=== PATIENT | male | born 1955 | race Caucasian/White ===

== ENCOUNTER 2016-12-14 22:06 | Observation (INO) | payer BC ==
[~2016-12-14] VITALS: Ht 180.3 cm; Wt 103.8 kg
--- NOTE | ~2016-12-14 | CON ---
PATIENT'S NAME: RUPERTO LLANES [facility] AGE: 61 Y [address] ROOM: [id number] [place], [place] [address] LOCATION: GPCU ADMIT DATE: 12/15/2016 Consultation DISCHARGE DATE: FAMILY PHYSICIAN: JEWELS CRAIG MD ATTENDING PHYSICIAN: JEWELS CRAIG REFERRING PHYSICIAN: Adrienne Davis MD HISTORY OF PRESENT ILLNESS: I saw this 61-year-old man in the hospital today. He came in following a syncopal episode he sustained at which time he landed on his head and was consequently admitted to the hospital. In the hospital today, he really did not have any complaints except for minimal bifrontal headaches, but this itself was not severe. Denies any nausea or vomiting. No blurring of his vision. No diplopia. No weakness or numbness in the upper or lower extremities. He said he had a similar syncopal episode about 3 months ago. At that time, he really did not fall. He just felt dizzy and was able to sit down prior to falling and then was able to carry on. It was later found that he has a second-degree heart block on workup. However, a CT scan of the brain that was done showed that he had a small subdural along the falx anteriorly on the left side and a small subdural collection of fluid, very small, in the anterior aspect of the left frontal lobe or the questionable area of contusion, which I really did not see on the scan. PAST MEDICAL HISTORY: He has a history of gout. ALLERGIES: NO KNOWN ALLERGIES TO MEDICATION. MEDICATIONS: He is only on allopurinol. REVIEW OF SYSTEMS: He denies any significant headache. No diplopia. No nausea, no vomiting. No neck pain. No chest pain. No abdominal pain. Denies any chest pain. Does not have any difficulty breathing. No abdominal pain. No weakness in the upper or lower extremities. No numbness in the upper or lower extremities. FAMILY HISTORY: He has strong family history of cardiac disease. PHYSICAL EXAMINATION: GENERAL: On examination in the hospital, he is a 61-year-old male who is 5 feet 11 inches tall, 103.8 kg in weight. Blood pressure is 120/72, the pulse was 77, respirations are 16, temperature is 97.8. [place] coma score was 15. HEENT: Did not appear to be in any acute distress. He was awake, he was PATIENT'S NAME: RUPERTO LLANES [facility] AGE: 61 Y [address] ROOM: [id number] [place], [place] [address] LOCATION: GPCU ADMIT DATE: 12/15/2016 Consultation DISCHARGE DATE: FAMILY PHYSICIAN: JEWELS CRAIG MD ATTENDING PHYSICIAN: JEWELS CRAIG alert. NECK: There was no tenderness on palpating cervical spinous processes or trapezius muscle. There was no restriction of movement of the cervical spine. CHEST: Clear. HEART: Heart rate was regular. ABDOMEN: Soft. No area of tenderness. NEUROLOGICAL: Cranial nerve examination was normal. The motor examination was normal. The sensory examination was normal. The reflexes were normal. The toes were downgoing. IMPRESSION: 1. Mild head injury. 2. Very small parafalcine and left anterior temporal subdural hematoma without any mass effect. I feel that this gentleman is stable. PLAN: 1. Unless there is a deterioration of his neurological status, there will really be no need to repeat the scan. 2. I do not see any contraindication to his being discharged home tomorrow if he stays stable neurologically. ADDENDUM: He had a CT scan of the cervical spine which shows evidence of degenerative disk disease, narrowing of the disk spaces, and anterior osteophytes at C5-6 and C6-7 without any accompanying fractures. MD YASH GUZMÁN/everette /[id number] d: 12/15/162100 t: 12/20/16 1514, CONSULTATION REPORT
--- NOTE | ~2016-12-14 | ER ---
PATIENT'S NAME: [facility] AGE: 61 Y [address] ROOM: [place] [address] LOCATION: GPCU ADMIT DATE: 12/15/2016 ER/Outpatient Report DISCHARGE DATE: FAMILY PHYSICIAN: JEWELS CRAIG MD ATTENDING PHYSICIAN: JEWELS CRAIG TIME OF ARRIVAL: 2205 hours. TIME OF EXAM: 2205 hours. CHIEF COMPLAINT: Syncopal episode. HISTORY OF PRESENT ILLNESS: The patient arrived per [facility], they state that they got called because the patient passed out at home. When they initially arrived, the patient had short-term memory loss, he could not remember what he really had done today. Upon arrival to the ER, the patient is awake and able to answer questions appropriately. 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 He states he did not have any chest pain, does not have any at this time, he has not been ill in anyway, has not had a cough, cold, congestion, or runny nose, has not been febrile, states he is pretty healthy and rarely goes to the doctor. Blood sugar checked by the ambulance was 168. The patient states he ate lunch, has not had supper yet, but ate gummy candy most of the afternoon while he worked. His son reports that he has had some vision changes since his new glasses arrived 1 week ago. ALLERGIES: NO KNOWN ALLERGIES. MEDICATIONS: Allopurinol. PAST MEDICAL HISTORY: Gout. PAST SURGERIES: Negative. SOCIAL HISTORY: PATIENT'S NAME: [facility] AGE: 61 Y [address] ROOM: [place] [address] LOCATION: GPCU ADMIT DATE: 12/15/2016 ER/Outpatient Report DISCHARGE DATE: FAMILY PHYSICIAN: JEWELS CRAIG MD ATTENDING PHYSICIAN: JEWELS CRAIG Denies any use of tobacco, drugs, or alcohol. REVIEW OF SYSTEMS: All negative other than those mentioned in the HPI. PHYSICAL EXAMINATION: VITAL SIGNS: He weighed 103.7 kg. Blood pressure is 159/96, pulse is 74, respirations 16, and O2 sat is 96% on room air. GENERAL: He is awake, alert, and oriented x4. SKIN: [place], warm, and dry. RESPIRATIONS: Even and nonlabored. TMs are pearly diaz. Nasal is clear. Oropharynx is clear. NECK: Supple. No lymphadenopathy. LUNGS: Lung sounds are clear throughout. HEART: Regular rate and rhythm. ABDOMEN: Soft, nondistended. Bowel sounds are present. EXTREMITIES: He moves all extremities strongly and equally. No peripheral edema noted. Positive peripheral pulses. NEURO: Cranial nerves 2 through 12 are grossly intact. LABORATORY DATA: EKG was completed. It does show a right bundle-branch block. There are no previous EKGs to compare it with. It was reviewed with Dr. Dozier. Lab work, CBC is within normal limits, Chem panel is within normal limits, glucose was 90, magnesium was 2.2, CPK is 239, CK-MB is 3.1, and troponin is negative. CT of the head was completed, it is negative per radiology report. He does have an occipital soft tissue contusion. CT of the cervical spine was completed. No abnormality is seen per radiology report. The patient was monitored and continued to be sinus rhythm. EMERGENCY DEPARTMENT COURSE: Discussed with the patient and his that we will check 2-hour enzyme results and repeat the EKG. They verbalized understanding. Report was given to Dr. Dozier at the change of shift. CORNELIO PANDYA APRN FOR MD NII BARDALES/everette /[id number] d: 12/15/16328 t: 02/15/171915, OUTPATIENT REPORT
--- NOTE | ~2016-12-14 | DS ---
PATIENT'S NAME: RUPERTO LLANES [facility] AGE: 61 Y [address] ROOM: [address] [place], [place] [address] LOCATION: GPCU ADMIT DATE: 12/15/2016 Discharge Summary DISCHARGE DATE: 12/16/2016 FAMILY PHYSICIAN: Jewels Belcher MD ATTENDING PHYSICIAN: Jewels Belcher FINAL DIAGNOSES: 1. Syncope, etiology undetermined. 2. Concussion, closed head injury, without focal deficit. 3. Small subdural hematoma and intracranial hemorrhage (see CAT scan of head report). 4. Elevated blood pressure, without diagnosis of hypertension. 5. Gout, currently quiescent. HOSPITAL COURSE: This 61-year-old male was admitted to the hospital on the date shown. The patient was seen in the emergency room by Dr. Dozier after a syncopal episode. The patient had passed out at home and had hit his head. The patient presented to the emergency room via ambulance and was evaluated by Dr. Dozier. His EKG at that time showed right bundle-branch block. No other acute changes. Lab work showed CBC and chemistry panel normal. Glucose was 90. Magnesium 2.5.. CT of the head was negative on original report. In the ER, he was noted to have a contusion in the occipital area. CT of the spine was completed, showing no sign of acute fracture or dislocation, but mild degenerative change noted. He was admitted to the hospital for observation. I came to see the patient the morning of admission. Because he had some bradycardia here in the 40s with second-degree heart block, I had Dr. Prem Ponce, the informatica mdm developer, look at his EKG, and it was felt that this was stable. No need for intervention or pacemaker. Second, I discussed the case with Dr. Adrienne Davis, neurosurgeon, and Dr. Davis was gracious enough to see the patient, review his CAT scan of his head and neck, and gave us recommendations for observation. On the morning of dismissal, 12/16/2016, the patient is medically stable. He has had no chest pain. No syncope. Has a mild, what he thinks is a caffeine- related headache because he has not had a cup of coffee yet. He has developed no new focal neurologic abnormality. His blood pressure is 155/80. We will follow that as an outpatient. He is dismissed to home to the care of his . I have asked him to see me back in the office in one week. He goes out on the med list shown basically PATIENT'S NAME: RUPERTO LLANES [facility] AGE: 61 Y [address] ROOM: [place] [address] LOCATION: GPCU ADMIT DATE: 12/15/2016 Discharge Summary DISCHARGE DATE: 12/16/2016 FAMILY PHYSICIAN: Jewels Belcher MD ATTENDING PHYSICIAN: Jewels Belcher including his prior gout medicine allopurinol, and he can take Tylenol and Advil for his headache. He will see me in one week in the office, and we will recheck his blood pressure and get his immunizations status up-to-date as he needs a shingles shot, he says. If he has increasing headache, chest pain, or shortness of breath, he should be seen back earlier. JEWELS BELCHER MD [employer] ROUSTABOUT/modl /[id number] d: 12/16/16 1353 t: 12/17/16 0733, DISCHARGE SUMMARY
--- NOTE | ~2016-12-14 | ER ---
PATIENT'S NAME: RUPERTO LLANES [facility] AGE: 61 Y [address] ROOM: [address] [place], [place] [address] LOCATION: GPCU ADMIT DATE: 12/15/2016 ER/Outpatient Report DISCHARGE DATE: FAMILY PHYSICIAN: JEWELS BELCHER MD ATTENDING PHYSICIAN: JEWELS BELCHER This patient was signed out to me by Emerita Brush. 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 Did go to CT scan, it was negative for any bleeding when he was pending the second set of enzymes and reassessment. When I reassessed him, the patient was increasingly confused. He was confused initially at the scene, but totally clear and alert, oriented x4, remembered what he was doing when he 1st arrived, but now his and his son states that he is getting more and more confused again. He thinks we were in [place] and he thinks it is 1978. He cannot think of his son's name or his 's name and he is kind of unclear about what he was doing earlier today. He also states that he seems quite restless and is moving very fidgety with the pulse ox etc. They stated that all of this happened after he hit his head on the ground after syncopizing. He is 61 years old. I think he would benefit from an observational stay. I think it is mostly a concussion. We will see if he improves overnight and then he should be on the monitor for his syncopal episode. So, we will admit this patient for observation, for syncope, and concussion. This was discussed with Dr. Belcher. The patient admitted in stable condition. IMPRESSION: Syncope, concussion. MD BLAKE BARDALES/everette /[id number] d: 12/15/16 0543 t: 12/15/161933, OUTPATIENT REPORT
[2016-12-14 22:28] LABS: BASOPHIL % 0.3 %; EOSINOPHIL # 0.2 K/uL (0.0-0.5); EOSINOPHIL % 3.4 %; HEMATOCRIT 44.9 % (37.0-53.0); HEMOGLOBIN 16.2 g/dL (11.0-16.0); IMMATURE GRANULOCYTE # 0.1 K/uL (0.0-0.3); IMMATURE GRANULOCYTE % 0.7 %; LYMPHOCYTE # 1.9 K/uL (0.8-4.0); LYMPHOCYTE % 28.4 %; MCH 30.9 pg (27.0-34.0); MCHC 36.1 gm/dL (32.0-36.5); MCV 85.5 fl (83.0-98.0); MONOCYTE # 0.6 K/uL (0.0-1.0); MONOCYTE % 9.2 %; MPV 11.2 fl (9.4-12.4); NRBC % 0 /100WBC (0-0.00); PLATELET COUNT 150 K/uL (150-450); RBC 5.25 M/uL (3.50-5.50); RDW-CV 12.4 % (11.9-14.6); WBC 6.8 K/uL (4.0-11.0)
[2016-12-14 22:37] LABS: INR - (THERAPEUTIC) 1.08 (0.92-1.07); PROTIME 11.4 SECONDS (9.8-11.4); PTT 27 SECONDS (25-32)
[2016-12-14 22:47] LABS: ALBUMIN 4.2 gm/dL (3.5-5.0); ALK PHOS 86 IU/L (33-138); ALT 38 IU/L (12-78); ANION GAP 11.9 (10.0-19.0); AST 25 IU/L (10-40); BLOOD UREA NITROGEN 19 mg/dL (6-24); CALCIUM 8.7 mg/dL (8.5-10.5); CHLORIDE 112 mMol/L (96-110); CO2 23 mMol/L (22-32); CPK 239 IU/L (35-332); CREATININE 1.1 mg/dL (0.6-1.3); ESTIMATED GFR (MDRD EQUATION) > 60; MAGNESIUM 2.2 mg/dL (1.8-2.6); POTASSIUM 3.9 mMol/L (3.7-5.1); SODIUM 143 mMol/L (135-145); TOTAL BILIRUBIN 1.2 mg/dL (0.0-1.5); TOTAL PROTEIN 7.4 g/dL (6.0-8.4)
[2016-12-15 00:37] LABS: CPK 367 IU/L (35-332)
[2016-12-15] MEDS ORDERED: ZYLOPRIM300 MG PO (01:37)
--- NOTE | 2016-12-15 02:19 | NUR ---
PATIENT WAS ADMITTED THROUGH THE ER AFTER BEING ASSESSED FOR A POTENTIAL SYNCOPAL EPISODE. PATIENT WAS REPORTED TO BE IN THE TRACTOR ALL DAY AND HAD RETURNED HOME. HE HAD STARTED TO FEEL DIZZY WHEN HE WOKE UP ON THE FLOOR AND APPARENTLY HITTING THE BACK OF HIS HEAD. THE SPOUSE CALLED 911 AND WAS TAKEN TO THE ER. HE WAS REPORTED TO BE VERY CONFUSED FOR THE AMBULANCE RIDE BUT SYMPTOMS HAD NEARLY RESOLVED BY THE TIME HE ARRIVED TO THE ER. DURING HIS ER VISIT PATIENT BECAME INCREASINGLY CONFUSED. CT WAS NEGATIVE. CARDIAC ENZYMES INITIATED. PATIENT REMAINS CONFUSED UPON ARRIVAL TO PCU AND IS UNABLE TO REPORT HIS OWN NAME. SPOUSE IS MAIN HISTORIAN. NO SIGNIFICANT HEALTH HISTORY OTHER THAN GOUT. DR. MELISSA CONTACTED FOR ORDERS.
--- NOTE | 2016-12-15 05:04 | NUR ---
Significant Event: PATIENT IS NOW ALERT AND ORIENTED. ANSWERS QUESTIONS APPROPRIATLEY. PRIOR TO THIS HE WAS UNABLE TO VERBALIZE HIS OWN NAME. BED ALARM IN PLACE. NS INFUSING AT 75ML/HR. CONTUSION TO BACK OF HEAD FROM FALL. Follow up:
--- NOTE | 2016-12-15 17:51 | NUR ---
DR CRAIG NOTIFIED THAT PATIENT HAD EPISODES OF 2ND DEGREE HEART BLOCK FOR SEVERAL MINUTES, THEN CONVERT BACK TO SINUS RHYTHM IN 70'S. CARDIOLOGY CONSULTED AND TELE STRIPS FAXED TO DR SCHMIDT. DR SCHMIDT NOTIFIED RN THAT PATIENT WOULD NOT NEED PACEMAKER WITH THAT RHYTHM. DR DELGADO CONSULTED AND ASSESSED PATIENT. PATIENT WAS A/OX3, NO EPISODES OF CONFUSION THIS SHIFT. PATIENT INSTRUCTED TO CALL NURSE IF DIZZY OR LIGHTHEADED, OR ANY OTHER SYMPTOMS. AT BEDSIDE WHEN DOCTORS ROUNDED.
--- NOTE | 2016-12-16 03:49 | NUR ---
Patient A/Ox3. VSS on RA. Standby assist to bathroom. Lungs clear. Bowel sounds present. IV Rt hand. Had a slight frontal headache all night, tylenol given x2 with little relief. Patient states he has had it since his fall. Patient did become nauseated and zofran was given x1 with relief. Patient also stated that he drink cokes 3-4 cans a day and think its a caffine withdrawal headache but he refused any pepsi. Remaining neuro assessment (-). Continue to monitor Neuro assessment, headache, and nausea.
--- NOTE | 2016-12-16 03:57 | NUR ---
Patient A/Ox3. VSS on RA. Up standby assist. Lungs clear. Bowel sounds present. IV to Rt hand. Did complain of frontal headache, tylenol given x2 with little relief. Patient states that he has had this headache since his fall it hasn't gotten worst or better just a steady headache. He thinks its a caffine withdrawal headache because he drinks 3-4 cans of coke a day. Will have bring up some coke today, refused to drink pepsi. Patient did get nauseated zofran x1 with relief noted. Remaining neuro assessment (-). Continue to monitor neuro assessment, headache, and nausea.
--- NOTE | 2016-12-16 11:33 | NUR ---
d- ord pt dc r-nurse told dr of pt hr 40s dr knew, orthos ok, pt still has some headache but says coke is helping, iv dcd intact, pt up to br ok, dc instructions told appt to be made tomorrow for 1 wk, r-pt has no questions and will check his bp/pulse at home and if dizzy, p-ta took pt out to car per wc
== END 2016-12-16 10:40 | disposition disaster alternative care site (69) ==
LOC: GMED 22:06 → GPCU 12-15 00:31
PROVIDERS: Emergency Medicine; ADMIT Family Medicine
DX: S06.5X0A Traumatic subdural hemorrhage without loss of consciousness, initial encounter (principal); R03.0 Elevated blood-pressure reading, without diagnosis of hypertension; M10.9 Gout, unspecified; Z79.899 Other long term (current) drug therapy; W19.XXXA Unspecified fall, initial encounter
CPT/HCPCS: G0378; J2405; J7030

== ENCOUNTER 2016-12-17 05:07 | Inpatient (IN) | payer BC ==
[~2016-12-17] VITALS: Ht 182.9 cm; Wt 101.6 kg
--- NOTE | ~2016-12-17 | HP ---
[facility] 61 Y [address] ROOM: [place] [address] LOCATION: GICU ADMIT DATE: 12/17/2016 History & Physical DISCHARGE DATE: FAMILY PHYSICIAN: JEWELS CRAIG MD ATTENDING PHYSICIAN: RIZWAN PARK V DATE OF SERVICE: CHIEF COMPLAINT: Fall. HISTORY OF PRESENT ILLNESS: The patient is a 61-year-old male, who fell at home, passed out, and hit his head. He ended up by ambulance coming to the emergency room and he was seen there by Dr. Dozier, ER physician. His evaluation in the ER showed normal telemetry strips, CBC and Chem panel were normal, magnesium was normal, CT of the head was normal on original read and CT of the neck was normal. The patient has been in the hospital with diagnosis of syncope and concussion for observation. When I see him, he is resting quietly in bed, does not complain of a headache, and has no vomiting, no visual changes, no weakness in his arms or legs. No history of previous syncope or seizures or arrhythmia. He just felt like all of a sudden, he blacked out in the kitchen and fell down. At this point, I have asked Dr. Prem Ponce, developer prover mechanical to review the patient's rhythm strip because he just had a spell of second-degree heart block with rates in the 40s and I have called Dr. Adrienne Davis, neurosurgeon on-call, and given him the patient's history and CT findings, which on over- read by Dr. Prem Gilmore here this morning show a possible small subdural hematoma and intracranial hemorrhage. Please see Dr. Gilmore's report. MEDICATIONS: Reviewed. Note, he is on allopurinol for gout. ALLERGIES: NOTED, NONE. PREVIOUS OPERATIONS: See nurse's notes. SOCIAL HISTORY: He does not smoke. FAMILY HISTORY: Noncontributory. [facility] AGE: 61 Y [address] ROOM: [place] [address] LOCATION: GICU ADMIT DATE: 12/17/2016 History & Physical DISCHARGE DATE: FAMILY PHYSICIAN: JEWELS CRAIG MD ATTENDING PHYSICIAN: RIZWAN PARK V REVIEW OF SYSTEMS: HEENT: As above. ENDOCRINE: He is not diabetic. There is no thyroid disease. LUNGS: No history of asthma. HEART: No history of hypertension or arrhythmia. GI: No nausea or vomiting. : No dysuria or frequency. EXTREMITIES: No significant arthritis. NEUROLOGIC: No prior history of seizure or syncope. MENTAL STATUS: No recent depression or anxiety. PHYSICAL EXAMINATION: GENERAL: Alert, dark-haired male who is bearded. He is oriented to person, place, time, and competent. He is in no apparent distress, lying in bed in PCU. HEENT: Shows pupils react to light. TMs are not visualized. Posterior pharynx is clear. NECK: Unremarkable. No carotid bruit. Thyroid not enlarged. LUNGS: Clear without wheezes or rub. HEART: No murmur, gallop, or rub. ABDOMEN: Soft without point tenderness. PELVIC: Not done. RECTAL: Not done. NEUROLOGIC: Shows cranial nerves intact. No lateralizing signs. Mental status: Normal for age. No sign of depression or anxiety. IMPRESSION: 1. Fall. 2. Syncope. 3. Second-degree heart block. 4. Intracranial hemorrhage with small subdural. PLAN: As per HPI. JEWELS CRAIG MD PREPRESS STRIPPER/modl /[id number] D: [id number] T: [id number] HISTORY & PHYSICAL
--- NOTE | ~2016-12-17 | CON ---
PATIENT'S NAME: RUPERTO LLANES [facility] AGE: 61 Y [address] ROOM: [address] [place] [id number] LOCATION: GICU ADMIT DATE: 12/17/2016 Consultation DISCHARGE DATE: FAMILY PHYSICIAN: JEWELS CRAIG MD ATTENDING PHYSICIAN: RIZWAN PARK V DATE OF CONSULTATION: 12/17/2016 REFERRING PHYSICIAN: Chucky Alcantar MD HISTORY OF PRESENT ILLNESS: Mr. Llanes is intubated on propofol presently so I could not get any history. The patient's and daughter was present. 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 He was not particularly overheated or out in the heat during that day. He came in the later portion of the day, was feeling well, but apparently in front of his was standing and started to make a snorting sound and fell backward and hitting the back of his head. He did not have any seizure activity such as tonic-clonic activity. This appeared to be a syncopal event. Again, there was no warning of this and the patient did not have any lightheadedness that was reported at any point. The patient was taken to the emergency room for the syncopal event and he actually did well there. He had a CT of the head, which was initially read as normal, but eventually was updated to show that he had a small subdural bleed in the anterior falx as well as some amount of blood that was in the suprasellar cistern and furthermore a likely posttraumatic subarachnoid bleed, which was small in the area of the left frontal region. So, back in the emergency room, the patient was planning to be discharged; however, very suddenly, he had an alteration in his sensorium, this was associated with the patient acting very bizarre looking and fidgeting with his hands almost to the point of acting strangely as if he was having a frontal-lobe type seizure. Furthermore, he was a bit agitated and was confused. It is clear that this episode lasted for at least 25 minutes. We decided that the patient should be monitored in the hospital; and by the tube test technician, he saw his and was completely back to baseline. He had talked to her like nothing had happened and during the course of the day was completely normal. During the workup for this event of the syncope, he was seen by the neurosurgeon, Dr. Davis, who noted that he had a very small bleed and no intervention was necessary and certainly there was no aspect to suggest that he had a seizure as it was unclear. Essentially, he was normal neurologically and was sent home. The next day after discharge, the patient had a generalized seizure at home and continued to have a generalized seizure and had multiple seizures in the emergency room to the point where he needed to be intubated for airway support. He was started on fosphenytoin and then Dilantin. Seizures stopped essentially from the antiepileptic medications and propofol. He has been intubated and on AC ventilatory support during the course of the day due to PATIENT'S NAME: RUPERTO LLANES [facility] AGE: 61 Y [address] ROOM: [place] [address] LOCATION: [facility] ADMIT DATE: 12/17/2016 Consultation DISCHARGE DATE: FAMILY PHYSICIAN: JEWELS CRAIG MD ATTENDING PHYSICIAN: RIZWAN PARK V dramatic seizure. The laboratory results did not show much evidence for a generalized seizure, but it was clear his generalized seizure took place, Neurology was asked to come in to comment on the nature of his generalized seizure after what seemed to be a fairly benign head injury with a small amount of bleed. PAST MEDICAL HISTORY: Essentially, the patient is healthy. The only medication, he has is allopurinol for a history of gout. He has no prior surgical history. SOCIAL HISTORY: He does not smoke. He does not drink alcohol. He does not use any illicit drugs. He is . He has at least 1 daughter. He works as a che. CURRENT MEDICATIONS: Include Dilantin 100 mg IV 3 times a day. REVIEW OF SYSTEMS: The patient is intubated after a prolonged generalized seizure in the emergency room. He was started on antiseizure medications. He has no gross evidence of seizures through the Dilantin and through propofol. He has been intubated on AC ventilatory support during the course of the day. The plan is to extubate the patient likely tomorrow. The patient possibly had some event of lightheadedness about 2 weeks prior, but did not result in any passing out. He is otherwise healthy. He was noted to have a bradycardic arrhythmia, seen in the emergency room on the floor, but this resolved and the etiology for this was unclear. The patient was seen by Cardiology and he was cleared for any further workup such as a pacemaker. He has remained in sinus rhythm in the 60s throughout all his time here and he has not had any bradycardic arrhythmia. PHYSICAL EXAMINATION: GENERAL: The patient is sedated. HEENT: Pupils equal, reactive to light, and accommodation. Extraocular muscles, corneal reflex, and oculocephalic reflex cannot be done due to currently for propofol. NEURO: The assessment of his motor power could not be done presently and the rest of the neurologic exam will likely be recorded after the patient is off of sedation. PLAN: I discussed with the family about doing a CT angiogram on the very small likelihood that he may have had a small sentinel bleed from an aneurysm, which is of course a very small chance, and the location of the subdural bleed and subarachnoid bleed are likely traumatic in etiology, but nonetheless because PATIENT'S NAME: RUPERTO LLANES [facility] AGE: 61 Y [address] ROOM: [place] [address] LOCATION: [facility] ADMIT DATE: 12/17/2016 Consultation DISCHARGE DATE: FAMILY PHYSICIAN: JEWELS CRAIG MD ATTENDING PHYSICIAN: RIZWAN PARK V the patient had this very sudden onset of his syncopal event followed by a seizure, he want to be sure as possible that we are not dealing with a small- vessel bleed. I discussed the case with Radiology and they agreed that a CT angiogram would be the best test. This will be performed before the patient is attempted to be extubated likely tomorrow. The etiology for the patient having a seizure after passing out and presumably having a concussion, but doing better thereafter is more likely from blood that track into the subarachnoid space. Subarachnoid hemorrhages can be more seizurogenic especially if blood tract into the ventricles, which were not seen presently. The bleed is extremely small, but nonetheless could be seizurogenic. There is no known history of seizures and no known history that would suggest a withdrawal seizure from any toxic ingestion or from a medication or from alcohol, which he does not use. There did not seem to be a necessary reason for the patient to have a syncopal event that particular day and it is not clear at all if the bradycardic event of 40 or so beats per minute was associated with the small subarachnoid bleed, which is certainly a possibility. I do believe that the patient in general will do fine with an extubation as these parameters on the vent are requiring low FiO2. The need for long-term antiseizure medication will likely be made at some point over the next few weeks to months, but it may be that the patient would need to be on seizure medication at least for the short-duration. Continue to follow Mr. Llanes's neurologic status here. MD ENRIKE KAPOOR/modl /[id number] d: 12/18/16 0231 t: 01/02/17 1728, CONSULTATION REPORT
--- NOTE | ~2016-12-17 | HP ---
PATIENT'S NAME: PERRY LLANES [facility] AGE: 61 Y [address] ROOM: [place] [address] LOCATION: [facility] ADMIT DATE: 12/17/2016 History & Physical DISCHARGE DATE: FAMILY PHYSICIAN: JEWELS CRAIG MD ATTENDING PHYSICIAN: RIZWAN PARK V DATE OF SERVICE: CLINICAL UPDATE: I was called this morning at approximately 6:[address] Reynold Garcia, ER physician. He told me the patient, Perry Llanes, presented with status epilepticus. As you can see, Perry was dismissed by me yesterday from the hospital. He had been here a couple days after falling and hitting his head. At this point, the patient is intubated and will be admitted to intensive care unit. I do not have Intensive Care privileges. So, I have asked Dr. Garcia to consult the hospitalist and neurologist as indicated. I will follow socially until the patient is more stable out of intensive care and then be more involved in care as needed. FINAL IMPRESSION: Status epilepticus, probably related to recent head injury and fall. JEWELS CRAIG MD GYROSCOPIC INSTRUMENT TESTER/everette /[id number] D: [id number] T: [id number] HISTORY & PHYSICAL
--- NOTE | ~2016-12-17 | ECHO ---
Transthoracic Echocardiography Report (TTE) Demographics Patient Name RUPERTO LLANES Date of Study 12/19/2016 Patient Number [id number] Visit Number [id number] Date of 1955 Room Number G6326 Accession Number [id number] Gender Male Age 61 year(s) Referring [employer] Psychologist Tootie Do RVT, Physician RDCS Physician Interpreting Shar Arm Rest Builder Physician Iman RED Supervising Ordering Physician Shar RED/CHERYL Valerio MD Nurse Stress Weather Anchor Conclusions Summary Normal LV/RV size and systolic function. The estimated left ventricular ejection fraction is 60-65%. Mild concentric left ventricular hypertrophy. Diastolic assessment reveals Grade I diastolic dysfunction. The left atrium is mildly dilated. No significant valvular abnormalities. No evidence of pericardial effusion. Procedure Type of Study TTE procedure:2D Echocardiogram. Procedure Date Date: 12/19/2016 Start: 11:32 AM Study Location: Inpatient Portable Technical Quality: Adequate visualization Indications:Heart block. Appropriate Use Criteria: 8 Patient Status: Routine Rhythm: Sinus with bundle branch block HR: 49 bpm BP: 138/80 mmHg M-Mode/2D Measurements LV Diastolic Dimension: 4.37 cm LV Systolic Dimension: 2.3 cm LV Septum Diastolic: 1.42 cm LV PW Diastolic: 1.47 cm AO Root Dimension: 2.7 cm Cardiac Output: 4.08 l/min AV Cusp Separation: 1.9 cm RV Diastolic Dimension: 3.16 cm LA volume: 77 ml LVOT: 2.2 cm RV Base: 2.95 cm LVOT VTI: 21.9 cm RV Mid: 2.71 cm LV Stroke volume: 83.21 ml TAPSE: 2.82 cm TDI-S': 12 cm/s Doppler Measurements AV Peak Velocity: 1.54 m/s MV Peak E-Wave: 0.53 m/s AV Peak Gradient: 9.49 mmHg MV Peak A-Wave: 0.6 m/s AV Mean Gradient: 5 mmHg MV E/A Ratio: 0.89 LVOT Peak Velocity: 1.03 m/s MV P1/2t: 97 msec TR Gradient:5.95 mmHg PV Peak Velocity: 1.02 m/s Estimated RAP:5 mmHg PV Peak Gradient: 4.16 mmHg Estimated RVSP: 11 mmHg Estimated PASP: 10.95 mmHg E' Septal Velocity: 0.05 m/s A' Septal Velocity: 0.1 m/s E' Lateral Velocity: 0.08 m/s A' Lateral Velocity: 0.13 m/s Findings Left Ventricle Mild concentric left ventricular hypertrophy. Diastolic assessment reveals Grade I diastolic dysfunction. Right Ventricle Normal right ventricle structure and function. Left Atrium The left atrium is mildly dilated. There is no evidence of patent foramen ovale or atrial septal defect by color Doppler. Right Atrium Normal right atrial size. IVC measures 2.0 cm with inspiratory collapse. Mitral Valve Normal mitral valve structure and function. Aortic Valve Normal aortic valve structure and function. Tricuspid Valve Normal tricuspid valve structure and function. Pulmonic Valve Normal pulmonic valve structure and function. Pericardial Effusion No evidence of pericardial effusion. Miscellaneous Visualized portions of the aortic root and ascending aorta appear normal in size. Pleural Effusion No evidence of pleural effusion. Contractility Score LV regional wall motion:(0-Non visualized 1-Normal 2-Hypokinesis 3-Akinesis 4-Dyskinesis 5-Aneurysm) Signature dtt: IMAN GAITAN dtd: 12/19/16 1132 Physician Self Edit
--- NOTE | ~2016-12-17 | OR ---
PATIENT'S NAME: RUPERTO LLANES [facility] AGE: 61 Y [address] ROOM: [place] [address] LOCATION: GPCU ADMIT DATE: 12/17/2016 OR/Procedure Report DISCHARGE DATE: FAMILY PHYSICIAN: JEWELS CRAGI MD ATTENDING PHYSICIAN: RIZWAN PARK V SURGEON: Prem Ponce MD DATABASE SECURITY EXPERT: DATE OF PROCEDURE: 12/21/2016 PROCEDURE: Dual chamber pacemaker implantation INDICATIONS: Second-degree heart block. PROCEDURE/FINDINGS: Patient was brought to the operative suite in the fasting state and prepped and draped in the normal manner. 1% lidocaine was used for local skin infiltration in the left infraclavicular region. An 18 gauge Cook needle was advanced to the left subclavian vein through which an 0.025 wire was placed. Needle was removed. Proximal end of the wire was attached to the surgical gown with a hemostat. Next, a second access point was obtained also with the 18 gauge Cook needle. 0.025 wire was placed. Needle was removed. Proximal end of the wire was attached to the surgical gown with a hemostat. Attention was then turned towards creation of the pacemaker pocket where additional 1% lidocaine was given. Next, a #11 blade was used for primary skin incision. Following this, blunt dissection, as well as Bovie cautery was used for dissection to the pectoralis fascia. This was identified, entered into and dissected both cephalad as well as caudally. The previously placed 0.025 wires were brought through the skin into the pocket. The first wire had a 7F sheath placed onto it. Wire and dilator were removed. Using fluoroscopic guidance, the right ventricular lead was placed. This is a [employer] Centrify, model #7742, serial #[id number]. Thresholds were obtained showing a sensing R wave of 9 mV, threshold 0.6 at 0.5 milliseconds pulse width, impedance of 741 ohms. Next, the shoulder sleeve was anchored into the pectoralis muscle using two interrupted sutures of zero of silk. A 7F sheath was placed on the remaining wire. Wire and dilator were removed. Using fluoroscopic guidance, the right atrial lead was placed. This is a [place], model #7741, serial #[id number]. Thresholds were obtained showing a sensing P wave of 4.7 mV, threshold 0.7 V at 0.5 milliseconds pulse width, impedance of 612 ohms. Next, the shoulder sleeve was anchored into the pectoralis muscle using two interrupted sutures of zero of silk. Both these leads were then connected to the generator. This is a S[employer]is[employer] ESSENTIO, model #L111, serial #[id number]. The generator with the connected leads were placed into the pacemaker pocket. Overlying subcutaneous tissue was closed with 2-0 Vicryl in running fashion. Next, the subcuticular layer was closed with 4.0 Vicryl also in running fashion. Steri-Strips were applied as well as a pressure dressing. PATIENT'S NAME: RUPERTO LLANES [facility] AGE: 61 Y [address] ROOM: [place] [address] LOCATION: [facility] ADMIT DATE: 12/17/2016 OR/Procedure Report DISCHARGE DATE: FAMILY PHYSICIAN: JEWELS CRAIG MD ATTENDING PHYSICIAN: RIZWAN PARK V Patient had been placed in a shoulder immobilizer prior to the start of the study. There were no complications. CONCLUSION: 1. Dual chamber pacemaker implantation for second-degree heart block. 2. Patient will continue with shoulder immobilizer for the next one week. 3. Chest x-ray is pending at the time of dictation. 4. Patient will be educated on use of the home remote monitoring system. MD RIKKI GREENWOOD/zoe /[id number] CC: Printer CARDIOPULMINARY d: 12/21/16 1430 t: 12/26/16 1220, OPERATIVE SUMMARY
--- NOTE | ~2016-12-17 | DS ---
PATIENT'S NAME: RUPERTO LLANES [facility] AGE: 61 Y [address] ROOM: [address] [place], [place] [address] LOCATION: GPCU ADMIT DATE: 12/17/2016 Discharge Summary DISCHARGE DATE: 12/23/2016 FAMILY PHYSICIAN: Aguila Belcher MD ATTENDING PHYSICIAN: Andrews Alonso V DISCHARGE DIAGNOSES: 1. Cardiogenic syncope secondary to #2. 2. Secondary atrioventricular block. 3. Status post permanent pacemaker placement (23% dependent). 4. Traumatic subdural hematoma. 5. Seizures, likely secondary to trauma. 6. Rhabdomyolysis, nontraumatic, secondary to seizures. DISCHARGE MEDICATIONS: Home medications with addition of amlodipine 5 mg daily and phenytoin 100 mg QID. IMAGING: Normal CTA head. CT cervical spine showed degenerative changes at C5-C6 and C6-C7 with no evidence of displaced fracture or dislocation. Chest x-ray showed stable nonacute chest. Serial CT brain showed improving subdural hematoma. HOSPITAL COURSE: In brief, this is a 61-year-old male with history of gout. He was admitted after he sustained a syncopal episode with fall associated with head trauma. Initially, head CT showed a possible small subdural hematoma. His EKG was suggestive of a 2:1 AV block and right bundle branch block. The working diagnosis was that the patient had significant bradycardia leading to syncope that resulted in the fall with head trauma leading to the subdural hematoma. Cardiology was consulted, and he obtained a pacemaker placement. Neurosurgery did not recommend any surgical intervention of the subdural hematoma and repeat/serial CT scan of the brain showed improvement of the subdural hematoma. He remained on teletypesetter monitor, and he did well. He denies any chest pain, shortness of breath, dyspnea on exertion, and no palpitation. At some point an EEG was also done and results also pending at this point. At the time of discharge, he was ambulating fine. He was tolerating diet well. CONDITION ON DISCHARGE: Good. DISPOSITION: Home. ACTIVITY: Ad marie. DIET: Regular diet. FOLLOWUP INSTRUCTIONS: 1. Follow up with Dr. Belcher in two week. 2. Follow up with Dr. Iman Myles in 2 weeks. 3. Follow up on EEG results with Dr Chua in 2 weeks. I would like to thank Dr. Belcher for allowing us to participate in the care PATIENT'S NAME: RUPERTO LLANES [facility] AGE: 61 Y [address] ROOM: [place] [address] LOCATION: [facility] ADMIT DATE: 12/17/2016 Discharge Summary DISCHARGE DATE: 12/23/2016 FAMILY PHYSICIAN: Aguila Belcher MD ATTENDING PHYSICIAN: Andrews Alonso V of this pleasant gentleman. PHILLY FERNANDEZ MD BA/modl /[id number] d: 12/22/16 1405 t: 12/25/16 0921, DISCHARGE SUMMARY
--- NOTE | ~2016-12-17 | HP ---
PATIENT'S NAME: [facility] AGE: 61 Y [address] ROOM: [place] [address] LOCATION: GI ADMIT DATE: 12/17/2016 History & Physical DISCHARGE DATE: FAMILY PHYSICIAN: JEWELS CRAIG MD ATTENDING PHYSICIAN: RIZWAN PARK V DATE OF SERVICE: CHIEF COMPLAINT: Seizures. HISTORY OF PRESENT ILLNESS: Provided entirely by the family. This is a previously healthy 61-year-old male who was discharged home approximately 24 hours ago. At that point, he was admitted for evaluation of a syncopal episode as well as minor subdural/subarachnoid hemorrhage, which was treated conservatively. Per discussion with the family, even at the first event, the patient was observed to have yelled out and fallen down hitting his head. He was unresponsive for a protracted period of time until taken by the paramedics to the ER. In the ER, he was confused initially, but after he was admitted and evaluated, he became appropriate again. He was not discharged on any antiepileptics. He did have a small subdural and small subarachnoids, which were monitored by Neurosurgery and not surgically treated. Shortly after arriving home, the patient was at his baseline status. He eventually went to sleep while watching TV. About an hour or 2 after that, his heard him screaming and when she went out to check on him, he was seen convulsing. He convulsed several more times en route to the ER. He had another seizure in the ER and was subsequently intubated. At this point, he is intubated and sedated with propofol and expectantly does not have any significant neurological function. REVIEW OF SYSTEMS: Negative for fevers, chills, nausea, vomiting, or palpitations. PAST MEDICAL HISTORY: As reported by his is that of gout. SURGICAL HISTORY: Unremarkable. 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 FAMILY HISTORY: PATIENT'S NAME: [facility] AGE: 61 Y [address] ROOM: [place] [address] LOCATION: [facility] ADMIT DATE: 12/17/2016 History & Physical DISCHARGE DATE: FAMILY PHYSICIAN: JEWELS CRAIG MD ATTENDING PHYSICIAN: RIZWAN PARK V Significant for heart disease in his mother. CURRENT MEDICATIONS: "Gout medication." PHYSICAL EXAMINATION: VITAL SIGNS: At this point, the patient's vital signs are blood pressure 90's/50's, heart rate varies from 50s with evidence of second-degree block to 80s with sinus, this is after the patient received Cerebyx. Saturating 92% on 80% FiO2. 6 of PEEP, afebrile, and breathing few breaths over the ventilator. GENERAL: Appears as a well-developed, well-nourished, middle-aged male, intubated and sedated. HEENT: Pupils are 3 mm and reactive to light. Remainder of neurological exam cannot be conducted. LYMPHATIC: Shows no cervical lymphadenopathy. ENDOCRINE: Shows no thyromegaly. LUNGS: Coarse bilaterally. HEART: Shows regular rate and rhythm. Occasionally irregular, bradycardia. ABDOMEN: Soft, nontender, nondistended. : No costovertebral angle tenderness. VASCULAR: 2+ pedal pulses. MUSCULOSKELETAL: Shows no muscle or joint abnormalities. LABORATORY DATA: Studies performed in the ER are significant for CT of his head, which shows improvement in his subdural and resolution of subarachnoid hemorrhage sustained on his prior stay. Lab results are significant for ABG showing pH 7.21, pCO2 of 51, PO2 of 57, saturations in 90s, this is 100% FiO2. Other lab results are significant for potassium 3.6, CO2 of 9 with an anion gap of 26. Glucose is 263 and creatinine is 1.8. White count 23.1, hemoglobin 16.8, platelets 355. Initially, his telemetry strips appeared as 2:1 heart block, this is after he was loaded with Cerebyx though subsequently he is now back in sinus rhythm at 83 beats per minute with right bundle-branch block. Chest x- ray shows poor inspiratory efforts with the ET tube and questionable edema versus patchy infiltrates as interpreted by me. ASSESSMENT AND PLAN: This is a previously healthy 61-year-old male who will be admitted with: 1. Convulsive activity. The patient has received Cerebyx. We will start him on Dilantin. We will provide him with airway protection. We will request a Neurology evaluation today. 2. Respiratory failure due to convulsive activity. At this point, the patient's airway is protected. I am able to come down on his oxygen saturations. I suspect that an aspiration pneumonia is present and we will treat that empirically with Levaquin. We will continue the patient PATIENT'S NAME: RUPERTO LLANES [facility] AGE: 61 Y [address] ROOM: [address] [place], [place] [address] LOCATION: [facility] ADMIT DATE: 12/17/2016 History & Physical DISCHARGE DATE: FAMILY PHYSICIAN: JEWELS CRAIG MD ATTENDING PHYSICIAN: RIZWAN PARK V on a ventilator as above and sedate him for now. 3. Metabolic/respiratory acidosis: This seems to be improving based on his bicarb. The patient is in fact breathing over the ventilator and we will allow his acid-base status to self-correct on the current ventilator settings. 4. Acute hypoxic respiratory failure. This is presumed pneumonia as above and we will treat him accordingly. 5. Metabolic Encephalopathy: We will also check the patient's CPK and lactate and treat him appropriately with IV fluids and monitor his CPK as well as consider development of rhabdo. 6. Evidence of second-degree atrioventricular block. This is likely related to Cerebyx load. The rhythm has now normalized. We will monitor the patient on telemetry and consider a 2-dimensional echocardiogram, though he was evaluated by Cardiology, I believe, on prior hospitalization. This patient is critically ill. Critical care time dedicated to his encounter is 60 minutes. RIZWAN PARK MD AVK/modl /[id number] D: [id number] T: [id number] HISTORY & PHYSICAL
--- NOTE | ~2016-12-17 | ER ---
PATIENT'S NAME: RUPERTO LLANES [facility] AGE: 61 Y [address] ROOM: [address] [place] [id number] LOCATION: [facility] ADMIT DATE: 12/17/2016 ER/Outpatient Report DISCHARGE DATE: FAMILY PHYSICIAN: JEWELS CRAIG MD ATTENDING PHYSICIAN: RIZWAN PARK V Time of Arrival: At 6:40. Time of Evaluation: The patient was seen on arrival. CHIEF COMPLAINT: This is a 61-year-old male. He was previously in very good health. He is in with seizure. HISTORY OF PRESENT ILLNESS: The patient was seen the day before yesterday after syncopal episode that resulted in a fall, and he hit his head and had a resultant subdural subarachnoid hemorrhage that was fairly small. He was confused for about 8 hours in the hospital. He regained his normal level of alertness the following morning, was observed in the hospital, discharged yesterday afternoon. Still had a mild headache, but was fully alert, and his short and long-term memory were intact. He was behaving normally. His was awakened by seizure activity early this morning. She called the paramedics and he continued to seize en route to the hospital. He had 3 or 4 separate episodes of convulsive activity, and he had no periods of alertness between these episodes, he remained in status. Upon arrival to the hospital, he was obtunded. He had sonorous respirations. He had low-grade fever, tachycardiac and mildly hypertensive. Pupils were 2 mm, responsive to light. He had no focal neurologic findings. He had increased muscle tone throughout and hyperreflexia. He was taken immediately to CT scan. CT scan was unchanged from his previous CT. Upon returning to the emergency department, he had 1 additional seizure in spite of 4 mg of Ativan IV, and so he was intubated and placed on a propofol drip. The hospitalist was called who agreed to admit the patient to the ICU. LABORATORY DATA AND X-RAYS: CBC revealed a markedly elevated white blood cell count of 23,000 with a normal diff. Comprehensive metabolic profile revealed an elevated blood glucose, but otherwise unremarkable. EKG revealed a bigeminy rhythm, essentially normal complexes interspersed with wide bizarre bifascicular block. No acute ST or T-wave changes. ASSESSMENT: Status epilepticus. PLAN: PATIENT'S NAME: RUPERTO LLANES [facility] AGE: 61 Y [address] ROOM: [place] [address] LOCATION: [facility] ADMIT DATE: 12/17/2016 ER/Outpatient Report DISCHARGE DATE: FAMILY PHYSICIAN: JEWELS CRAIG MD ATTENDING PHYSICIAN: RIZWAN PARK V Admit to the ICU on a propofol drip. He was given 4 mg of Ativan in the emergency department. He was given 1 g of fosphenytoin in the emergency department, and he was started on a propofol drip. Time spent caring for the patient, 50 minutes. LONNIE MORALES MD JDB/modl /[id number] d: 12/17/16 0953 t: 12/18/16 0444, OUTPATIENT REPORT
--- NOTE | ~2016-12-17 | CON ---
PATIENT'S NAME: [facility] AGE: 61 Y [address] ROOM: [place] [address] LOCATION: GICU ADMIT DATE: 12/17/2016 Consultation DISCHARGE DATE: FAMILY PHYSICIAN: JEWELS CRAIG MD ATTENDING PHYSICIAN: RIZWAN PARK V DATE OF CONSULTATION: 12/17/2016 REFERRING PHYSICIAN: Chucky Tirado MD REFERRING: Hospitalist Service. REASON FOR REFERRAL: Management of the ventilator. HISTORY OF PRESENT ILLNESS: The patient is a 61-year-old gentleman. He is a che. He fell and suffered a small subdural hematoma. He was initially admitted for observation and sent home when there was no progression of symptoms. He returned after suffering seizures at home. He was intubated for airway protection. PAST MEDICAL HISTORY: Please refer to the admission history and physical exam. FAMILY HISTORY: Unobtainable due to his intubated and sedated state. SOCIAL HISTORY: Unobtainable due to his intubated and sedated state. REVIEW OF SYSTEMS: Unobtainable due to his intubated and sedated state. PHYSICAL EXAMINATION: GENERAL: Sedated, on mechanical ventilation. ENT: Unremarkable. NECK: Normal. CHEST: Normal. LUNGS: Diminished but clear. HEART: Regular. ABDOMEN: Soft. EXTREMITIES: No clubbing or edema. ASSESSMENT: Respiratory insufficiency, do primarily to need for airway protection. PATIENT'S NAME: [facility] AGE: 61 Y [address] ROOM: [place] [address] LOCATION: GICU ADMIT DATE: 12/17/2016 Consultation DISCHARGE DATE: FAMILY PHYSICIAN: JEWELS CRAIG MD ATTENDING PHYSICIAN: RIZWAN PARK V PLAN: We will assist in ventilator and critical care management. CHUCKY TIRADO MD DEC/modl /[id number] d: 12/17/16 1214 t: 12/31/16 1429, CONSULTATION REPORT
--- NOTE | ~2016-12-17 | NDGEN ---
PATIENT'S NAME: RUPERTO LLANES [facility] AGE: 61 Y [address] ROOM: [place] [address] [facility]: [facility] ADMIT DATE: 12/17/2016 Neurodiagnostics DISCHARGE DATE: FAMILY PHYSICIAN: JEWELS CRAIG MD ATTENDING PHYSICIAN: RIZWAN PARK V PROCEDURE: ELECTROENCEPHALOGRAM DATE OF PROCEDURE: 12/19/2016 TIME: The patient had this study done on 12/19/2016 at 12:13 p.m. DESCRIPTION: Mr. Llanes is a 61-year-old male patient who was admitted after a syncopal event. He likely had a cardiac arrhythmia. He ended up having a traumatic left frontal hematoma as well as secondary small subarachnoid bleed. He had to be intubated. Now he is awake and alert and oriented though his behaviors is a bit odd consistent with the frontal head injury. He did have a generalized seizure upon entering to the hospital. He is now on Dilantin therapy. General background rhythm in this 20-lead EEG was essentially normal at 10 hertz alpha rhythm which had a normal sinusoidal pattern. The photic stimulation did cause an increase in to the background amplitudes, the highest amplitudes were up to 50 microvolts. There was no asymmetry seen in the study of any concern. There was no epileptiform features seen and no seizures were recorded. IMPRESSION: Normal EEG. MD ENRIKE KAPOOR/everette /[id number] dtt: 01/02/17 1733 , GAUDENCIO MCKENZIE dtd: 12/19/16 1754
--- NOTE | ~2016-12-17 | CON ---
[facility] 61 Y [address] ROOM: [place] [address] LOCATION: GPCU ADMIT DATE: 12/17/2016 Consultation DISCHARGE DATE: FAMILY PHYSICIAN: JEWELS CRAIG MD ATTENDING PHYSICIAN: RIZWAN PARK V DATE OF CONSULTATION: 12/19/2016 REFERRING PHYSICIAN: Chucky Alcantar MD REASON FOR CARDIOLOGY CONSULTATION: Heart block with bradycardia. HISTORY OF PRESENT ILLNESS: This is a 61-year-old male, who experienced a syncopal episode with a fall, in which he hit his head. He was brought to the Emergency Department for evaluation, and his head CT showed a possible small subdural hematoma. This consult was requested due to the patient being in a 2:1 AV block, as well as having a right bundle-branch block and a heart rate in the 40s. He admits to having one previous episode, where he became very symptomatic and dizzy while standing. He denies chest pain, shortness of breath, dyspnea on exertion, or palpitations. He also denies nausea or vomiting or diarrhea. At the time of this consult, the patient is sitting comfortably up in his chair in the Intensive Care Unit. He has no complaints at this time, and on his nurse receptionist, he continues to convert back and forth from a sinus rhythm to a 2:1 AV block. PAST MEDICAL HISTORY: 1. Gout. 2. Recent history during this hospitalization of a seizure. FAMILY HISTORY: The patient's mother had a history of heart disease, and his father had a history of bone cancer. SOCIAL HISTORY: The patient denies ever using tobacco. He also denies alcohol or illicit drug use. CURRENT MEDICATIONS: 1. Dilantin 100 mg q.i.d. 2. Protonix 40 mg IV daily. 3. Levaquin 750 mg IV daily. 4. Norvasc 5 mg p.o. daily. MEDICATION ALLERGIES: [facility] 61 Y [address] ROOM: [address] [place] [id number] LOCATION: GPCU ADMIT DATE: 12/17/2016 Consultation DISCHARGE DATE: FAMILY PHYSICIAN: JEWELS CRAIG MD ATTENDING PHYSICIAN: RIZWAN PARK V No known medication allergies. REVIEW OF SYSTEMS: Pertinent positive review of systems is listed in the HPI. All other review of systems were evaluated and negative. PHYSICAL EXAMINATION: VITAL SIGNS: Temperature of 98.5, pulse of 48, respirations of 26, blood pressure of 127/71, and O2 saturation of 95% on room air. The patient weighs 103.6 kg. SKIN: [place], warm, and dry. EYES: Sclerae were clear. No xanthelasma. ENT: Oral mucosa was pink and moist. No jugular venous distention. No carotid bruits. CHEST: Respirations are even and unlabored. LUNGS: Clear to auscultation. HEART: Regular rate and rhythm. Normal S1 and S2. No murmurs, rubs, or gallops. Majority of the time, he is in a sinus rhythm with heart rates in the 60s, but he does convert to a 2:1 Mobitz type II AV block. During those times, his heart rate is in the 40s. ABDOMEN: Soft and nontender. MUSCULOSKELETAL: Gait is normal. EXTREMITIES: Peripheral pulses are palpable. No clubbing, cyanosis, or edema. PSYCHIATRIC: Alert and oriented. Mood and affect are appropriate. His mentation is a bit slow, and he does take some time to answer questions, but does answer appropriately. IMPRESSION AND PLAN: Per Dr. Iman Myles 1. 2:1 Mobitz type II atrioventricular block with underlying right bundle-branch block. Due to his block and his EKG findings, it is suggestive of an infrahis conduction delay and a Class I indication for a permanent pacemaker. The patient is at high risk for continued events of syncope due to his first episode of syncope in November likely being due to this second-degree atrioventricular block. We will plan to proceed with a permanent pacemaker implantation. We will continue to monitor, evaluate, and treat as appropriate. 2. SDH, improvement on CT scan. 3. 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 Thank you for this consult. Thank you for allowing [facility] to interact in the care of this patient. PATIENT'S NAME: RUPERTO LLANES [facility] AGE: 61 Y [address] ROOM: [place] [address] LOCATION: GPCU ADMIT DATE: 12/17/2016 Consultation DISCHARGE DATE: FAMILY PHYSICIAN: JEWELS CRAIG MD ATTENDING PHYSICIAN: RIZWAN PARK V TYESHA KIRAN APRN FOR IMAN MD KANDY DEH/modl /[id number] d: 12/19/162054 t: 12/26/16 1701, CONSULTATION REPORT
[~2016-12-17 05:07] MED LIST: ZYLOPRIM300 MG PO
[2016-12-17 05:33] LABS: HEMATOCRIT 51.5 % (37.0-53.0); HEMOGLOBIN 16.8 g/dL (11.0-16.0); MCH 30.1 pg (27.0-34.0); MCHC 32.6 gm/dL (32.0-36.5); MPV 11.7 fl (9.4-12.4); RBC 5.59 M/uL (3.50-5.50); RDW-CV 12.2 % (11.9-14.6)
[2016-12-17 05:34] LABS: MCV 92.1 fl (83.0-98.0); PLATELET COUNT 255 K/uL (150-450); WBC 23.1 K/uL (4.0-11.0)
[2016-12-17 05:39] LABS: INR - (THERAPEUTIC) 1.08 (0.92-1.07); PROTIME 11.4 SECONDS (9.8-11.4); PTT 28 SECONDS (25-32)
[2016-12-17 05:47] LABS: ALBUMIN 4.2 gm/dL (3.5-5.0); ANION GAP 29.6 (10.0-19.0); CALCIUM 9.4 mg/dL (8.5-10.5); CREATININE 1.8 mg/dL (0.6-1.3); POTASSIUM 3.6 mMol/L (3.7-5.1); TOTAL BILIRUBIN 1.2 mg/dL (0.0-1.5); TOTAL PROTEIN 8.2 g/dL (6.0-8.4)
[2016-12-17 06:03] LABS: BANDED NEUTROPHIL # 0.7 K/uL (0.0-0.1); BANDED NEUTROPHILS % 3 %; LYMPHOCYTE # 11.6 K/uL (0.8-4.0); LYMPHOCYTE % 48 %; MONOCYTE # 1.4 K/uL (0.0-1.0); SEGMENTED NEUTROPHIL # 8.3 K/uL (1.4-9.0); SEGMENTED NEUTROPHIL % 36 %
[2016-12-17 06:27] LABS: BILIRUBIN URINE NEGATIVE (NEGATIVE); BLOOD URINE 250 /UL (NEGATIVE); COLOR URINE YELLOW (YELLOW); GLUCOSE URINE NEGATIVE (NEGATIVE); KETONE URINE 5 mg/dL (NEGATIVE); LEUKOCYTES URINE NEGATIVE /UL (NEGATIVE); NITRITE URINE NEGATIVE (NEGATIVE); PROTEIN URINE 30 mg/dL (NEGATIVE); TURBIDITY URINE CLEAR (CLEAR); UROBILINOGEN URINE NORMAL (NORMAL)
[2016-12-17 06:33] LABS: BICARBONATE 20.4 mmol/L (18.0-23.0); PCO2 51 mmHg (35-45); PO2 72 mmHg (80-90)
[2016-12-17 06:36] LABS: BACTERIA URINE RARE (NEGATIVE); EPITHELIAL URINE RARE #/HPF (NEGATIVE); RBC URINE 0-2 #/HPF (NEGATIVE); WBC URINE 0-2 #/HPF (NEGATIVE)
[2016-12-17 09:05] LABS: CPK 346 IU/L (35-332)
[2016-12-17 17:06] LABS: ANION GAP 13.1 (10.0-19.0); CHLORIDE 112 mMol/L (96-110); CO2 22 mMol/L (22-32); POTASSIUM 4.1 mEq/L (3.7-5.1); SODIUM 143 mEq/L (135-145)
[2016-12-17 17:07] LABS: BLOOD UREA NITROGEN 16 mg/dL (6-24); CALCIUM 8.4 mg/dL (8.5-10.5); CPK 886 IU/L (35-332); CREATININE 1.2 mg/dL (0.6-1.3); ESTIMATED GFR (MDRD EQUATION) > 60; MAGNESIUM 2.2 mg/dL (1.8-2.6)
[2016-12-18 09:05] LABS: BASOPHIL % 0.2 %; EOSINOPHIL # 0.1 K/uL (0.0-0.5); EOSINOPHIL % 1.3 %; HEMOGLOBIN 14.1 g/dL (11.0-16.0); IMMATURE GRANULOCYTE # 0.1 K/uL (0.0-0.3); IMMATURE GRANULOCYTE % 0.5 %; LYMPHOCYTE # 1.4 K/uL (0.8-4.0); LYMPHOCYTE % 14.8 %; MCH 30.7 pg (27.0-34.0); MCV 87.6 fl (83.0-98.0); MONOCYTE # 0.8 K/uL (0.0-1.0); MONOCYTE % 8.5 %; MPV 11.2 fl (9.4-12.4); NEUTROPHIL # (ANC) 6.8 K/uL (1.4-9.0); NEUTROPHIL % 74.7 %; NRBC % 0 /100WBC (0-0.00); RDW-CV 12.8 % (11.9-14.6); WBC 9.2 K/uL (4.0-11.0)
[2016-12-18 09:06] LABS: HEMATOCRIT 40.3 % (37.0-53.0); PLATELET COUNT 119 K/uL (150-450)
[2016-12-18 09:26] LABS: ALBUMIN 3.2 gm/dL (3.5-5.0); ALK PHOS 71 IU/L (33-138); ALT 37 IU/L (12-78); ANION GAP 9.7 (10.0-19.0); AST 41 IU/L (10-40); BLOOD UREA NITROGEN 12 mg/dL (6-24); CALCIUM 8.3 mg/dL (8.5-10.5); CHLORIDE 112 mMol/L (96-110); CO2 25 mMol/L (22-32); ESTIMATED GFR (MDRD EQUATION) > 60; POTASSIUM 3.7 mMol/L (3.7-5.1); SODIUM 143 mMol/L (135-145); TOTAL PROTEIN 6.2 g/dL (6.0-8.4)
[2016-12-18 09:32] LABS: TOTAL BILIRUBIN 1.5 mg/dL (0.0-1.5)
[2016-12-18 09:35] LABS: CPK 1298 IU/L (35-332)
[2016-12-19 12:50] LABS: BILIRUBIN URINE NEGATIVE (NEGATIVE); BLOOD URINE NEGATIVE /UL (NEGATIVE); COLOR URINE YELLOW (YELLOW); GLUCOSE URINE NEGATIVE (NEGATIVE); KETONE URINE 15 mg/dL (NEGATIVE); LEUKOCYTES URINE NEGATIVE /UL (NEGATIVE); NITRITE URINE NEGATIVE (NEGATIVE); PROTEIN URINE 15 mg/dL (NEGATIVE); SPEC GRAVITY URINE 1.015 (1.003-1.035); TURBIDITY URINE 1+ (CLEAR); UROBILINOGEN URINE 4 mg/dL (NORMAL)
[2016-12-19 12:55] LABS: WBC URINE RARE #/HPF (NEGATIVE)
[2016-12-19 12:56] LABS: BACTERIA URINE NEGATIVE (NEGATIVE); EPITHELIAL URINE NEGATIVE #/HPF (NEGATIVE); RBC URINE NEGATIVE #/HPF (NEGATIVE)
[2016-12-20 05:08] LABS: BASOPHIL % 0.1 %; EOSINOPHIL # 0.1 K/uL (0.0-0.5); EOSINOPHIL % 1.6 %; HEMATOCRIT 41.5 % (37.0-53.0); HEMOGLOBIN 14.7 g/dL (11.0-16.0); IMMATURE GRANULOCYTE % 0.4 %; LYMPHOCYTE # 1.2 K/uL (0.8-4.0); LYMPHOCYTE % 15.4 %; MCH 30.2 pg (27.0-34.0); MCHC 35.4 gm/dL (32.0-36.5); MCV 85.2 fl (83.0-98.0); MONOCYTE # 0.8 K/uL (0.0-1.0); MONOCYTE % 9.5 %; MPV 11.2 fl (9.4-12.4); NEUTROPHIL # (ANC) 5.8 K/uL (1.4-9.0); NRBC % 0 /100WBC (0-0.00); PLATELET COUNT 142 K/uL (150-450); RBC 4.87 M/uL (3.50-5.50); RDW-CV 12.2 % (11.9-14.6); WBC 7.9 K/uL (4.0-11.0)
[2016-12-20 05:35] LABS: ALBUMIN 3.7 gm/dL (3.5-5.0); ALK PHOS 81 IU/L (33-138); ALT 54 IU/L (12-78); ANION GAP 11.7 (10.0-19.0); AST 119 IU/L (10-40); BLOOD UREA NITROGEN 14 mg/dL (6-24); CALCIUM 8.9 mg/dL (8.5-10.5); CHLORIDE 107 mMol/L (96-110); CO2 25 mMol/L (22-32); ESTIMATED GFR (MDRD EQUATION) > 60; POTASSIUM 3.7 mMol/L (3.7-5.1); SODIUM 140 mMol/L (135-145); TOTAL PROTEIN 7.1 g/dL (6.0-8.4)
[2016-12-20 09:45] LABS: INR - (THERAPEUTIC) 1.16 (0.92-1.07); PROTIME 12.2 SECONDS (9.8-11.4)
[2016-12-20 09:52] LABS: ALBUMIN 4.2 gm/dL (3.5-5.0); ANION GAP 13.7 (10.0-19.0); BLOOD UREA NITROGEN 15 mg/dL (6-24); CHLORIDE 106 mMol/L (96-110); CO2 23 mMol/L (22-32); CREATININE 1.2 mg/dL (0.6-1.3); ESTIMATED GFR (MDRD EQUATION) > 60; PHOSPHORUS 3.3 mg/dL (2.5-4.9); POTASSIUM 3.7 mMol/L (3.7-5.1); SODIUM 139 mMol/L (135-145)
[2016-12-20 17:35] LABS: BILIRUBIN URINE NEGATIVE (NEGATIVE); BLOOD URINE 10 /UL (NEGATIVE); GLUCOSE URINE NEGATIVE (NEGATIVE); KETONE URINE NEGATIVE (NEGATIVE); LEUKOCYTES URINE NEGATIVE /UL (NEGATIVE); NITRITE URINE NEGATIVE (NEGATIVE); PROTEIN URINE 15 mg/dL (NEGATIVE); UROBILINOGEN URINE 8 mg/dL (NORMAL)
[2016-12-20 17:45] LABS: COLOR URINE AMBER (YELLOW); TURBIDITY URINE CLEAR (CLEAR)
[2016-12-20 17:54] LABS: AMORPHOUS URINE 1+ (NEGATIVE); BACTERIA URINE NEGATIVE (NEGATIVE); EPITHELIAL URINE 0-2 #/HPF (NEGATIVE); MUCUS URINE 2+ (NEGATIVE); RBC URINE 0-2 #/HPF (NEGATIVE); WBC URINE 0-2 #/HPF (NEGATIVE)
[2016-12-21 03:43] LABS: BASOPHIL % 0.4 %; EOSINOPHIL # 0.2 K/uL (0.0-0.5); EOSINOPHIL % 2.9 %; HEMATOCRIT 42.1 % (37.0-53.0); HEMOGLOBIN 14.6 g/dL (11.0-16.0); IMMATURE GRANULOCYTE % 0.5 %; LYMPHOCYTE # 1.2 K/uL (0.8-4.0); MCH 29.7 pg (27.0-34.0); MCHC 34.7 gm/dL (32.0-36.5); MCV 85.6 fl (83.0-98.0); MONOCYTE # 0.7 K/uL (0.0-1.0); MONOCYTE % 8.2 %; MPV 11.4 fl (9.4-12.4); NEUTROPHIL # (ANC) 5.8 K/uL (1.4-9.0); NRBC % 0 /100WBC (0-0.00); PLATELET COUNT 155 K/uL (150-450); RBC 4.92 M/uL (3.50-5.50); RDW-CV 12.3 % (11.9-14.6); WBC 7.9 K/uL (4.0-11.0)
[2016-12-21 03:56] LABS: INR - (THERAPEUTIC) 1.11 (0.92-1.07); PROTIME 11.7 SECONDS (9.8-11.4)
[2016-12-23 04:49] LABS: ALBUMIN 3.5 gm/dL (3.5-5.0); ANION GAP 10.8 (10.0-19.0); BLOOD UREA NITROGEN 16 mg/dL (6-24); CALCIUM 8.6 mg/dL (8.5-10.5); CHLORIDE 106 mMol/L (96-110); CO2 25 mMol/L (22-32); CPK 660 IU/L (35-332); CREATININE 0.9 mg/dL (0.6-1.3); ESTIMATED GFR (MDRD EQUATION) > 60; PHOSPHORUS 3.3 mg/dL (2.5-4.9); POTASSIUM 3.8 mMol/L (3.7-5.1); SODIUM 138 mMol/L (135-145)
[2016-12-23] MEDS ORDERED: NORVASC5 MG PO (13:59)
[2016-12-23] MEDS ORDERED: DILANTIN100 MG PO (14:03)
[2016-12-23] MEDS ORDERED: TYLENOL325 MG PO (14:04)
[2016-12-23] MEDS ORDERED: NORCO 5-325 TA1 EACH PO (14:07)
[2016-12-23] MEDS ORDERED: FLONASE 50 MCG/16 GM NOSE (14:08)
[2016-12-23] MEDS ORDERED: CAMPHO-PHENIQU6.5 GM TOP (14:12)
== END 2016-12-23 15:00 | disposition disaster alternative care site (69) | DRG 242 ==
LOC: GMED 05:07 → GPCU 06:54 → GICU 06:54 → GPCU 12-19 12:35
PROVIDERS: Emergency Medicine; Family Medicine; Internal Medicine Interventional Cardiology; Student in an Organized Health Care Education/Training Program; Thoracic Surgery (Cardiothoracic Vascular Surgery); ADMIT Internal Medicine
PROC: 0BH17EZ Insertion of Endotracheal Airway into Trachea, Via Natural or Artificial Opening (ICD-10-PCS; principal; 2016-12-17)
PROC: 5A1945Z Respiratory Ventilation, 24-96 Consecutive Hours (ICD-10-PCS; 2016-12-17)
PROC: 02H63JZ Insertion of Pacemaker Lead into Right Atrium, Percutaneous Approach (ICD-10-PCS; 2016-12-21)
PROC: 02HK3JZ Insertion of Pacemaker Lead into Right Ventricle, Percutaneous Approach (ICD-10-PCS; 2016-12-21)
PROC: 0JH606Z Insertion of Pacemaker, Dual Chamber into Chest Subcutaneous Tissue and Fascia, Open Approach (ICD-10-PCS; 2016-12-21)
DX: I44.1 Atrioventricular block, second degree (principal); J96.01 Acute respiratory failure with hypoxia; E87.4 Mixed disorder of acid-base balance; M62.82 Rhabdomyolysis; M10.9 Gout, unspecified; I45.10 Unspecified right bundle-branch block; S06.5X0D Traumatic subdural hemorrhage without loss of consciousness, subsequent encounter; R73.9 Hyperglycemia, unspecified; E66.9 Obesity, unspecified; I10 Essential (primary) hypertension; M50.322 Other cervical disc degeneration at C5-C6 level
CPT/HCPCS: C1785; C1898; C9113; J0690; J1956; J2001; J2060; J2250; J2405; J2704; J3010; J7030; J7040; J7050; J7060; Q2009